=== PATIENT | female | born 1990 | race Asian ===

== ENCOUNTER → 2019-05-25 | Outpatient (CLI) | payer BC | END | disposition home or self-care (01) | LOC: PLD 07:22 → LAB SHORT 07:22 | DX: L72.8 Other follicular cysts of the skin and subcutaneous tissue (principal) | CPT/HCPCS: 88304 ==

== ENCOUNTER → 2020-06-16 | Outpatient (CLI) | payer BC | LOC: OLS 09:30 → LAB SHORT 09:30 | DX: L70.0 Acne vulgaris (principal); Z79.899 Other long term (current) drug therapy | CPT/HCPCS: 81025 ==

== ENCOUNTER → 2025-07-25 | Outpatient (CLI) | payer OTHER ==
[2025-07-25 13:43] LABS: Bacterial Vaginosis PCR Negative (NEGATIVE); Candida Group, PCR NOT DETECTED (NOT DETECT); Candida glabrata-krusei, PCR NOT DETECTED (NOT DETECT)
== END | disposition home or self-care (01) ==
LOC: LAB SHORT 10:38 → LAB 10:38
PROVIDERS: Obstetrics & Gynecology
DX: Z01.419 Encounter for gynecological examination (general) (routine) without abnormal findings (principal); N89.8 Other specified noninflammatory disorders of vagina
CPT/HCPCS: 81515